=== PATIENT | female | born 1945 | race Caucasian/White ===

== ENCOUNTER 2016-06-25 17:10 | Observation (INO) | payer OTHER, BC ==
[~2016-06-25] VITALS: Ht 167.6 cm; Wt 75.5 kg
[2016-06-25 17:55] LABS: CHLORIDE 108 mEq/L (99-109); SODIUM 141 mEq/L (136-147)
[2016-06-25 17:56] LABS: GLUCOSE 145 mg/dL (70-99)
[2016-06-25 17:58] LABS: ANION GAP 11 MEQ/L (2-14)
[2016-06-25 18:00] LABS: GFR ESTIMATE (CALCULATED) > 59 mL/min/; HEMATOCRIT 39.9 % (36.0-46.0); MCH 30.2 PG (29.0-34.0); MCHC 34.8 G/DL (30.0-36.0); MCV 86.6 FL (83-99); MEAN PLAT.VOLUME 10.3 uM^3 (9.5-12.4); PLATELET COUNT 353 K/uL (156-360); RBC DIS.WIDTH-CV 12.6 % (11.8-14.6); RBC DIS.WIDTH-SD 38.8 % (39-53); RED BLOOD COUNT 4.61 M/uL (3.80-5.20); WHITE BLOOD COUNT 6.5 K/uL (4.1-10.2)
[2016-06-25 18:01] LABS: UREA NITROGEN (BUN) 11 mg/dL (9-23)
[2016-06-25 18:08] LABS: TROP-I INTERPRETATION NEGATIVE; TROPONIN-I < 0.01 ng/mL (0.0-0.30)
[2016-06-25] MEDS ORDERED: CARVEDILOL12.5 MG PO (18:54)
[2016-06-25] MEDS ORDERED: AMLODIPINE BES2.5 MG PO (18:54)
[2016-06-25] MEDS ORDERED: LANSOPRAZOLE30 MG PO (18:54)
[2016-06-25] MEDS ORDERED: VALSARTAN320 MG PO (18:55)
[2016-06-25] MEDS ORDERED: ALPRAZOLAM0.5 MG PO (18:55)
[2016-06-25] MEDS ORDERED: HYDROCODON-ACE1 EAC9 PO (18:55)
[2016-06-25] MEDS ORDERED: MELATONIN PO (18:56)
[2016-06-25] MEDS ORDERED: LITE COAT ASPI325 M1 PO (18:56)
[2016-06-25] MEDS ORDERED: TYLENOL EXTRA500 MG PO (18:57)
[2016-06-25 23:24] VITALS: BP 129/56; BP 146/77
[2016-06-26 01:00] LABS: TROP-I INTERPRETATION NEGATIVE; TROPONIN-I < 0.01 ng/mL (0.0-0.30)
[2016-06-26 04:40] VITALS: BP 148/78
[2016-06-26 05:56] LABS: HDL CHOLESTEROL 48 MG/DL (Desirable>=50); LDL CHOLESTEROL 150 mg/dL (Desirable<100); NON-HDL CHOLESTEROL 169 mg/dL (Desirable<160); TOTAL CHOLESTEROL 217 mg/dL (Desirable<200); TRIGLYCERIDES 96 MG/DL (Normal: <150)
[2016-06-26 06:16] LABS: TROP-I INTERPRETATION NEGATIVE; TROPONIN-I < 0.01 ng/mL (0.0-0.30)
[2016-06-26 07:21] LABS: Estimated Average Glucose 114 mg/dL (70-123); HEMOGLOBIN A1c (GLYCOHEMOGLOB) 5.6 % HGB (Below 5.7)
[2016-06-26 08:17] VITALS: BP 143/70
[2016-06-26 12:14] VITALS: BP 142/80
[2016-06-26] MEDS ORDERED: ATORVASTATIN CA40 MG PO (15:40)
[2016-06-26] MEDS ORDERED: AMLODIPINE BES2.5 MG PO (15:44)
[2016-06-26 16:30] VITALS: BP 142/61
== END 2016-06-26 16:39 | disposition home or self-care (01) ==
LOC: EME 17:10 → EDOF 20:04 → 5WEST 20:04
PROVIDERS: Physician Assistant Medical
DX: R07.9 Chest pain, unspecified (principal); I10 Essential (primary) hypertension; E78.5 Hyperlipidemia, unspecified; K21.9 Gastro-esophageal reflux disease without esophagitis; R94.31 Abnormal electrocardiogram [ECG] [EKG]; F43.9 Reaction to severe stress, unspecified; R73.9 Hyperglycemia, unspecified; Z82.49 Family history of ischemic heart disease and other diseases of the circulatory system; Z77.22 Contact with and (suspected) exposure to environmental tobacco smoke (acute) (chronic); Z79.82 Long term (current) use of aspirin; Z88.8 Allergy status to other drugs, medicaments and biological substances
CPT/HCPCS: 71020; 80048; 80061; 83036; 84484; 85027; 93005; 99281; 99285; G0378; J1650

== ENCOUNTER 2016-12-11 09:56 | Emergency (ER) | payer OTHER, BC ==
[~2016-12-11] VITALS: Ht 167.6 cm; Wt 81.9 kg
[~2016-12-11 09:56] MED LIST: ALPRAZOLAM0.5 MG PO; AMLODIPINE BES2.5 MG PO; ATORVASTATIN CA40 MG PO; CARVEDILOL12.5 MG PO; HYDROCODON-ACE1 EAC9 PO; LANSOPRAZOLE30 MG PO; LITE COAT ASPI325 M1 PO; MELATONIN PO; TYLENOL EXTRA500 MG PO; VALSARTAN320 MG PO
[2016-12-11 11:23] LABS: EOSINOPHIL (%) 1.5 % (0-5); EOSINOPHIL COUNT 0.2 K/uL (0-0.3); HEMATOCRIT 38.3 % (36.0-46.0); IMMATURE GRANULOCYTE (%) 0.5 % (0.0-0.7); IMMATURE GRANULOCYTE COUNT 0.1 K/uL; INSTRUMENT ABS NEUTROPHIL CT 9.7 K/uL; LYMPHOCYTE COUNT 1.4 K/uL (1.0-2.8); MCH 29.9 PG (29.0-34.0); MCHC 34.2 G/DL (30.0-36.0); MCV 87.4 FL (83-99); MONOCYTE (%) 3.9 % (3-12); MONOCYTE COUNT 0.5 K/uL (0-0.8); NEUTROPHIL (%) 82.1 % (45-76); NEUTROPHIL COUNT 9.7 K/uL (1.8-6.4); PLATELET COUNT 336 K/uL (156-360); RBC DIS.WIDTH-CV 12.5 % (11.8-14.6); RED BLOOD COUNT 4.38 M/uL (3.80-5.20); WHITE BLOOD COUNT 11.8 K/uL (4.1-10.2)
[2016-12-11 11:29] LABS: INTER. NORMALIZED RATIO 1.1; PROTHROMBIN TIME 12.2 SEC (10.2-12.9)
[2016-12-11 11:32] LABS: PTT 28.5 SEC (25-37)
[2016-12-11 11:34] LABS: CHLORIDE 106 mEq/L (99-109); POTASSIUM 4.6 mEq/L (3.7-5.4); SODIUM 142 mEq/L (136-147)
[2016-12-11 11:37] LABS: GLUCOSE 116 mg/dL (70-99)
[2016-12-11 11:38] LABS: ANION GAP 15 MEQ/L (2-14); TOTAL BILIRUBIN 0.5 mg/dL (0.0-1.0)
[2016-12-11 11:40] LABS: ALKALINE PHOSPHATASE 115 IU/L (3-129); GFR ESTIMATE (CALCULATED) > 59 mL/min/
[2016-12-11 11:41] LABS: UREA NITROGEN (BUN) 11 mg/dL (9-23)
[2016-12-11 11:42] LABS: DIRECT BILIRUBIN 0.2 mg/dL (0.0-0.3)
[2016-12-11 11:44] LABS: LIPASE 17 U/L (1.0-51.0); TROP-I INTERPRETATION NEGATIVE; TROPONIN-I < 0.01 ng/mL (0.0-0.30)
[2016-12-11 14:47] LABS: TROP-I INTERPRETATION NEGATIVE; TROPONIN-I < 0.01 ng/mL (0.0-0.30)
[2016-12-11 15:30] VITALS: BP 127/68
== END 2016-12-11 15:29 | disposition home or self-care (01) ==
LOC: EME 09:56
PROVIDERS: Emergency Medicine
DX: R07.9 Chest pain, unspecified (principal); E78.5 Hyperlipidemia, unspecified; I10 Essential (primary) hypertension; K21.9 Gastro-esophageal reflux disease without esophagitis
CPT/HCPCS: 71010; 80048; 80076; 83690; 83880; 84484; 85025; 85610; 85730; 93005; 99281; 99284; J2405; S0028

== ENCOUNTER 2017-02-12 02:56 | Observation (INO) | payer OTHER, BC ==
[~2017-02-12] VITALS: Ht 172.7 cm; Wt 70.6 kg
[2017-02-12 03:22] LABS: HEMATOCRIT 36.4 % (36.0-46.0); MCHC 34.3 G/DL (30.0-36.0); MCV 87.5 FL (83-99); MEAN PLAT.VOLUME 10.1 uM^3 (9.5-12.4); PLATELET COUNT 334 K/uL (156-360); RBC DIS.WIDTH-CV 12.9 % (11.8-14.6); RBC DIS.WIDTH-SD 41.3 % (39-53); RED BLOOD COUNT 4.16 M/uL (3.80-5.20); WHITE BLOOD COUNT 8.1 K/uL (4.1-10.2)
[2017-02-12 03:31] LABS: CHLORIDE 106 mEq/L (99-109); POTASSIUM 3.7 mEq/L (3.7-5.4); SODIUM 137 mEq/L (136-147)
[2017-02-12 03:33] LABS: GLUCOSE 149 mg/dL (70-99)
[2017-02-12 03:34] LABS: ANION GAP 12 MEQ/L (2-14)
[2017-02-12 03:37] LABS: GFR ESTIMATE (CALCULATED) > 59 mL/min/
[2017-02-12 03:38] LABS: UREA NITROGEN (BUN) 10 mg/dL (9-23)
[2017-02-12 03:41] LABS: TROP-I INTERPRETATION NEGATIVE; TROPONIN-I < 0.01 ng/mL (0.0-0.30)
[2017-02-12] MEDS ORDERED: CELEXA10 MG PO (06:22)
[2017-02-12] MEDS ORDERED: ATORVASTATIN CA40 MG PO (06:25)
[2017-02-12 07:30] VITALS: BP 144/69
[2017-02-12] MEDS ORDERED: AMLODIPINE BESYL5 MG PO (09:20)
[2017-02-12] MEDS ORDERED: ALPRAZOLAM0.5 MG PO (09:20)
[2017-02-12 10:50] LABS: TROP-I INTERPRETATION NEGATIVE; TROPONIN-I < 0.01 ng/mL (0.0-0.30)
[2017-02-12 10:52] LABS: HDL CHOLESTEROL 44 MG/DL (Desirable>=50); LDL CHOLESTEROL 138 mg/dL (Desirable<100); NON-HDL CHOLESTEROL 164 mg/dL (Desirable<160); TOTAL CHOLESTEROL 208 mg/dL (Desirable<200); TRIGLYCERIDES 129 MG/DL (Normal: <150)
[2017-02-12 11:02] VITALS: BP 123/58
[2017-02-12 15:08] VITALS: BP 111/64
[2017-02-12 16:14] LABS: TROP-I INTERPRETATION NEGATIVE; TROPONIN-I 0.03 ng/mL (0.0-0.30)
== END 2017-02-12 17:22 | disposition home or self-care (01) ==
LOC: EME 02:56 → EDOF 06:04 → ENRESERV 06:07 → 5WEST 07:19
PROVIDERS: Physician Assistant Medical
DX: R07.9 Chest pain, unspecified (principal); I10 Essential (primary) hypertension; K21.9 Gastro-esophageal reflux disease without esophagitis; E78.5 Hyperlipidemia, unspecified; M54.5 Low back pain; R94.31 Abnormal electrocardiogram [ECG] [EKG]; F41.9 Anxiety disorder, unspecified; Z82.49 Family history of ischemic heart disease and other diseases of the circulatory system; Z79.82 Long term (current) use of aspirin; Z88.8 Allergy status to other drugs, medicaments and biological substances
CPT/HCPCS: 71020; 80048; 80061; 84484; 85027; 93005; 99281; 99284; G0378; J1650

== ENCOUNTER 2017-05-09 00:11 | Observation (INO) | payer OTHER, BC ==
[~2017-05-09] VITALS: Ht 167.6 cm; Wt 77.5 kg
[~2017-05-09 00:11] MED LIST changes: +AMLODIPINE BESYL5 MG PO; -CARVEDILOL12.5 MG PO; +CARVEDILOL25 MG PO; +CELEXA10 MG PO
[2017-05-09 00:40] LABS: HEMATOCRIT 36.6 % (36.0-46.0); MCH 30.6 PG (29.0-34.0); MCHC 34.4 G/DL (30.0-36.0); MCV 88.8 FL (83-99); MEAN PLAT.VOLUME 10.4 uM^3 (9.5-12.4); PLATELET COUNT 334 K/uL (156-360); RBC DIS.WIDTH-CV 12.6 % (11.8-14.6); RBC DIS.WIDTH-SD 40.8 % (39-53); RED BLOOD COUNT 4.12 M/uL (3.80-5.20); WHITE BLOOD COUNT 11.8 K/uL (4.1-10.2)
[2017-05-09 00:51] LABS: CHLORIDE 105 mEq/L (99-109); POTASSIUM 4.1 mEq/L (3.7-5.4); SODIUM 138 mEq/L (136-147)
[2017-05-09 00:53] LABS: GLUCOSE 119 mg/dL (70-99)
[2017-05-09 00:54] LABS: ANION GAP 11 MEQ/L (2-14)
[2017-05-09 00:57] LABS: GFR ESTIMATE (CALCULATED) > 59 mL/min/
[2017-05-09 00:58] LABS: UREA NITROGEN (BUN) 14 mg/dL (9-23)
[2017-05-09 01:05] LABS: TROP-I INTERPRETATION NEGATIVE; TROPONIN-I < 0.01 ng/mL (0.0-0.30)
[2017-05-09] MEDS ORDERED: ADVIL200 MG PO (02:04)
[2017-05-09 05:31] VITALS: BP 146/71
[2017-05-09 07:00] VITALS: BP 175/81
[2017-05-09 07:26] LABS: TROP-I INTERPRETATION NEGATIVE; TROPONIN-I < 0.01 ng/mL (0.0-0.30)
[2017-05-09 11:50] VITALS: BP 135/64
[2017-05-09 13:07] LABS: TROP-I INTERPRETATION NEGATIVE; TROPONIN-I < 0.01 ng/mL (0.0-0.30)
== END 2017-05-09 15:42 | disposition home or self-care (01) ==
LOC: EME 00:11 → EDOF 04:13 → ENRESERV 04:21 → 5WEST 05:12
PROVIDERS: Nurse Practitioner Adult Health
DX: R07.9 Chest pain, unspecified (principal); I10 Essential (primary) hypertension; K21.9 Gastro-esophageal reflux disease without esophagitis; E78.5 Hyperlipidemia, unspecified; G43.909 Migraine, unspecified, not intractable, without status migrainosus; R06.02 Shortness of breath; R11.0 Nausea; D72.829 Elevated white blood cell count, unspecified; Z79.82 Long term (current) use of aspirin
CPT/HCPCS: 71020; 80048; 84484; 85027; 93005; G0378

== ENCOUNTER 2017-09-15 23:10 | Observation (INO) | payer OTHER, BC ==
[~2017-09-15] VITALS: Ht 167.6 cm; Wt 78.1 kg
[~2017-09-15 23:10] MED LIST changes: +ADVIL200 MG PO
[2017-09-15 23:59] LABS: HEMATOCRIT 36.4 % (36.0-46.0); HEMOGLOBIN 12.6 G/DL (11.9-15.5); MCH 30.5 PG (29.0-34.0); MCHC 34.6 G/DL (30.0-36.0); MCV 88.1 FL (83-99); PLATELET COUNT 331 K/uL (156-360); RBC DIS.WIDTH-CV 12.5 % (11.8-14.6); RBC DIS.WIDTH-SD 40.2 % (39-53); RED BLOOD COUNT 4.13 M/uL (3.80-5.20); WHITE BLOOD COUNT 8.2 K/uL (4.1-10.2)
[2017-09-16 00:15] LABS: CHLORIDE 106 mEq/L (99-109); SODIUM 140 mEq/L (136-147)
[2017-09-16 00:16] LABS: GLUCOSE 133 mg/dL (70-99)
[2017-09-16 00:20] LABS: CREATININE 0.9 mg/dL (0.6-1.3); GFR ESTIMATE (CALCULATED) > 59 mL/min/
[2017-09-16 00:21] LABS: UREA NITROGEN (BUN) 15 mg/dL (9-23)
[2017-09-16 00:24] LABS: TROP-I INTERPRETATION NEGATIVE; TROPONIN-I < 0.01 ng/mL (0.0-0.30)
[2017-09-16 04:43] LABS: TROP-I INTERPRETATION NEGATIVE; TROPONIN-I < 0.01 ng/mL (0.0-0.30)
[2017-09-16 04:44] LABS: ALBUMIN 4.4 g/dL (3.2-4.8)
[2017-09-16 04:47] LABS: TOTAL PROTEIN 7.9 g/dL (6.4-8.3)
[2017-09-16 04:49] LABS: TOTAL BILIRUBIN 0.3 mg/dL (0.0-1.0)
[2017-09-16 04:50] LABS: ALKALINE PHOSPHATASE 113 IU/L (3-129)
[2017-09-16 04:52] LABS: AST (GOT) 39 IU/L (2-34); DIRECT BILIRUBIN 0.1 mg/dL (0.0-0.3)
[2017-09-16 04:53] LABS: ALT (GPT) 46 IU/L (3-49); LIPASE 87 U/L (1.0-51.0)
[2017-09-16] MEDS ORDERED: MELATONIN5 M1 PO (07:41)
[2017-09-16] MEDS ORDERED: ONE DAILY1 EAC3 PO (07:41)
[2017-09-16] MEDS ORDERED: BENADRYL25 MG PO (07:41)
[2017-09-16 10:16] LABS: TROP-I INTERPRETATION NEGATIVE; TROPONIN-I < 0.01 ng/mL (0.0-0.30)
[2017-09-16 11:20] VITALS: BP 138/69
[2017-09-16 16:22] VITALS: BP 156/73
[2017-09-16 16:44] LABS: TROP-I INTERPRETATION NEGATIVE; TROPONIN-I < 0.01 ng/mL (0.0-0.30)
[2017-09-16] MEDS ORDERED: ASPIR 8181 M1 PO (16:56)
== END 2017-09-16 18:55 | disposition home or self-care (01) ==
LOC: EME 23:10 → EDOF 09-16 07:51 → ENRESERV 09-16 07:55 → 4SOUTH 09-16 15:58
PROVIDERS: Hospitalist
DX: R07.89 Other chest pain (principal); I10 Essential (primary) hypertension; E78.5 Hyperlipidemia, unspecified; K21.9 Gastro-esophageal reflux disease without esophagitis; R94.31 Abnormal electrocardiogram [ECG] [EKG]; F41.9 Anxiety disorder, unspecified; Z82.49 Family history of ischemic heart disease and other diseases of the circulatory system
CPT/HCPCS: 71046; 80048; 80076; 83690; 84484; 85027; 93005; G0378; J1650; J7030